=== PATIENT | female | born 1940 | race Caucasian/White ===

== ENCOUNTER 2016-09-24 10:50 | Emergency (ER) | payer OTHER ==
[~2016-09-24] VITALS: Ht 157.5 cm; Wt 140.6 kg
[2016-09-24 10:56] VITALS: BP 156/91
--- NOTE | 2016-09-24 11:16 | NUR ---
Patient to bed 04.
--- NOTE | 2016-09-24 11:20 | NUR ---
Dr. Massey evaluating patient at bedside.
--- NOTE | 2016-09-24 11:22 | NUR ---
PATIENT BIB DAUGHTER ON WHEEL CHAIR WITH C/O BLOOD ON STOOL A MONTH AGO, BLOOD IN URINE TODAY, WEAK, "FEEL LIKE FAINTING", DIZZINESS, SOB, BL LOWER EXTRIMITIES SWELLING, C/O PAIN ON AMBULATION;HX; HTN, OBESE, BLOOD CLOT ON LEG, ARTHRITIS ON ALL JOINTS;RX; DICLOFENAC 1% GEL 100GM, XAREL, ATENOLOL, FUROSEMIDE, FERROUS SULFATE,POTASSIUM CL, ENALAPRIL, TRAMADOL, VIT.D;PT IS WHEELCHAIR BOUND; DENIES N/V/D; SKIN IS PINK/WARM/DRY; AAOX4; LUNGS CLEAR BL; HR EVEN AND REGULAR; PT DENIES ANY FEVER, CP, SOB, OR COUGH AT THIS TIME; PATIENT STATES PAIN OF 0/10 AT THIS TIME;PATIENT POSITIONED FOR COMFORT;
[2016-09-24] MEDS ORDERED: cefTRIAXone 1,000 MG in LIDOCAINE 1% ED 2.1 ML IM ONE (11:30)
--- NOTE | 2016-09-24 12:25 | NUR ---
Patient discharged with v/s stable. Written and verbal after care instructions given and explained.Patient alert, oriented and verbalized understanding of instructions. Wheel Chair Assisted with to car. All questions addressed prior to discharge. ID band removed. Patient advised to follow up with PMD. Rx of KEFLEX given. Patient educated on indication of medication including possible reaction and side effects. Opportunity to ask questions provided and answered.ADVISED PT TO INCEASE FLUID INTAKE AND CLEAN ANAL AREA FROM FRONT TO BACK TO AVOID CONATMINATION OF PRIVATE AREA TO AVOID INFXN/UTI.
[2016-09-24 12:27] VITALS: BP 156/91
== END 2016-09-24 12:25 | disposition home or self-care (01) ==
LOC: MED 10:50
DX: N30.81 Other cystitis with hematuria (principal); I10 Essential (primary) hypertension; E66.01 Morbid (severe) obesity due to excess calories; M19.90 Unspecified osteoarthritis, unspecified site; Z86.718 Personal history of other venous thrombosis and embolism
CPT/HCPCS: 36415; 71010; 80053; 81001; 83880; 84484; 85025; 85610; 85730; 87086; 93005; 96372; 99285; J0696; J2001; Q0092

== ENCOUNTER 2017-09-05 16:51 | Emergency (ER) | payer OTHER ==
[~2017-09-05] VITALS: Ht 160 cm; Wt 140.6 kg
[2017-09-05 17:00] VITALS: BP 178/106
--- NOTE | 2017-09-05 17:00 | NUR ---
PT AMBULATES TO BED 4
--- NOTE | 2017-09-05 17:05 | NUR ---
PT. BIB DAUGHTER BY RECOMMENDATION OF HER THERAPY PLACE DUE TO HER B/P BEING HIGH. PT. STATES " I HAVE BEEN FEELING DIZZY THESE PAST 3 DAYS AND ALSO HAVE HAD SOME VISION CHANGES,I HAVE BEEN A LITTLE MORE SOB WHEN I WALK 15-20 STEPS". PT. AAOX4. PT. DENIES N/V/D. PT. SAYS SHE FEELS WEAK AND DIZZY. DENIES COUGH. DAUGHTER AT BEDSIDE. Jaya NAVARRETE NOTIFIED OF PATIENT STATUS. WILL CONTINUE TO MONITOR.
[2017-09-05] MEDS ORDERED: NITROGLYCERIN 2% 1 GM PKT TP ONE (17:30)
--- NOTE | 2017-09-05 17:46 | NUR ---
LAB AT BEDSIDE.
[2017-09-05 18:11] LABS: BASOPHILS # (AUTO) 0.1 K/uL (0.00-0.22); BASOPHILS % (AUTO) 0.7 % (0.0-2.0); EOSINOPHILS # (AUTO) 0.1 K/uL (0-0.4); EOSINOPHILS % (AUTO) 1.5 % (0.0-4.0); HEMATOCRIT 36.5 % (36-48); HEMOGLOBIN 11.2 g/dL (12.0-16.0); LYMPHOCYTES # (AUTO) 1.9 K/uL (2.5-16.5); MEAN CORPUSCULAR HEMOGLOBIN 23 pg (27-31); MEAN CORPUSCULAR HGB CONC 31 g/dL (33-37); MEAN CORPUSCULAR VOLUME 75.7 fL (80-94); MONOCYTES # (AUTO) 0.7 K/uL (0.8-1.0); MONOCYTES % (AUTO) 7.5 % (1.7-9.3); NEUTROPHILS # (AUTO) 5.9 K/uL (1.8-7.7); NEUTROPHILS % (AUTO) 68.3 % (42.2-75.2); PLATELET COUNT (AUTO) 241 K/uL (140-450); RED BLOOD CELL COUNT(AUTO) 4.81 MIL/uL (4.20-5.40); WHITE BLOOD COUNT (AUTO) 8.7 K/uL (4.8-10.8)
--- NOTE | 2017-09-05 18:15 | NUR ---
PT. AMBULATED TO RESTROOM W/ STEADY GAIT W/ WALKER AND DAUGHTER .
[2017-09-05 18:26] LABS: PROTHROMBIN TIME 11.6 secs (10.8-13.4)
[2017-09-05 18:27] LABS: ANION GAP 15.2 (8-16); CARBON DIOXIDE 26.3 mmol/L (21-32); CHLORIDE 107 mmol/L (98-107); CREATININE 0.8 mg/dL (0.6-1.3); GLUCOSE 91 mg/dL (74-106); POTASSIUM 3.5 mmol/L (3.5-5.1); SODIUM SERUM 145 mmol/L (136-145); UREA NITROGEN, BLOOD 22 mg/dL (7-18)
[2017-09-05 18:28] LABS: APPEARANCE,URINE SL CLOUDY (CLEAR); BILIRUBIN,URINE 1+ (NEGATIVE); BLOOD, URINE 1+ (NEGATIVE); COLOR,URINE YELLOW (YELLOW); LEUKOCYTE ESTERASE ,URINE 2+ (NEGATIVE); NITRITE, URINE POSITIVE (NEGATIVE); UGLUCOSE NEGATIVE (NEGATIVE)
[2017-09-05 18:33] LABS: ALBUMIN 3.2 g/dL (3.4-5.0); ASPARTATE AMINOTRANSFERASE 13 U/L (15-37); TOTAL BILIRUBIN 0.3 mg/dL (0.0-1.0)
--- NOTE | 2017-09-05 18:52 | NUR ---
PT. RESTING IN BED COMFORTABLY, RR EVEN AND UNLABORED, DAUGHTER AT BEDSIDE. BED IN LOWEST POSITION. WILL CONTINUE TO MONITOR.
[2017-09-05 18:59] LABS: RBC,URINE 0-5 (RARE) /HPF (0-5)
[2017-09-05 19:00] LABS: WBC,URINE TOO MANY TO COUNT /HPF (0-5)
--- NOTE | 2017-09-05 19:13 | NUR ---
Pt report given to AUSTIN GOODRICH . Transfer of care at this time.
--- NOTE | 2017-09-05 19:22 | NUR ---
Ultrasound at bedside.
--- NOTE | 2017-09-05 20:00 | NUR ---
Patient discharged with v/s stable. Written and verbal after care instructions given and explained. Patient verbalized understanding. Ambulatory with steady gait. All questions addressed prior to discharge. Advised to follow up with PMD.
[2017-09-05 20:09] VITALS: BP 132/73
== END 2017-09-05 20:00 | disposition home or self-care (01) ==
LOC: MED 16:51
DX: F41.9 Anxiety disorder, unspecified (principal); R06.00 Dyspnea, unspecified; I10 Essential (primary) hypertension; E78.5 Hyperlipidemia, unspecified; M19.90 Unspecified osteoarthritis, unspecified site; R82.79 Other abnormal findings on microbiological examination of urine; Z86.718 Personal history of other venous thrombosis and embolism
CPT/HCPCS: 36415; 71045; 80053; 81001; 83880; 84484; 85025; 85610; 85730; 87086; 87186; 93970; 99285; Q0092

== ENCOUNTER 2017-12-26 10:11 | Emergency (ER) | payer OTHER ==
[~2017-12-26] VITALS: Ht 157.5 cm; Wt 140.6 kg
[2017-12-26 10:20] VITALS: BP 155/84
--- NOTE | 2017-12-26 10:20 | NUR ---
TO BED AMB. WITH WALKER WITH FAMILY
--- NOTE | 2017-12-26 10:26 | NUR ---
76 YO F BIB DAUGHTER FOR C/O RT. UPPER BACK PAIN TORT. BREAST AND NECK X2WKS. PT DENIES ANY TRAUMA OR RECENT INJURY. AAOX4 LS CLEAR THROUGHOUT. ABD SOFT ROUND AND NON TENDER. PT DENIES ANY CP, SOB, FEVER COUGH OR COLD AT THIS TIME. NO OTHER MEDIAL CO AT THIS TIME. PT POSITIONED FOR COMFORT. ER MD MADE AWARE.
[2017-12-26] MEDS ORDERED: KETOROLAC 60 MG/2 ML VIAL IM ONE (10:45)
--- NOTE | 2017-12-26 10:50 | NUR ---
# 14 FR Urinary catheter inserted utilizing sterile technique. Immediate return of 100 ml CLEAR YELLOW urine noted. Urine sample collected and sent to lab. Pt tolerated procedure WELL.
[2017-12-26] MEDS ORDERED: TRAZ-343 PO (10:51)
[2017-12-26] MEDS ORDERED: VAS5 PO (10:51)
[2017-12-26] MEDS ORDERED: FURO-570 PO (10:51)
[2017-12-26] MEDS ORDERED: ATEN25TA7 PO (10:51)
[2017-12-26] MEDS ORDERED: POTA10TE30 PO (10:51)
[2017-12-26] MEDS ORDERED: RIVA20TA PO (10:51)
[2017-12-26] MEDS ORDERED: VITD1000 PO (10:51)
--- NOTE | 2017-12-26 11:00 | NUR ---
DR HALL AT BEDSIDE FOR PT EVALUATION
[2017-12-26 11:41] VITALS: BP 149/80
--- NOTE | 2017-12-26 11:41 | NUR ---
Patient discharged with v/s stable. Written and verbal after care instructions given and explained. Patient alert, oriented and verbalized understanding of instructions. Ambulatory with ADDISTIVE DEVICE. All questions addressed prior to discharge. ID band removed. Patient advised to follow up with PMD. Rx of given. Patient educated on indication of medication including possible reaction and side effects. Opportunity to ask questions provided and answered.
== END 2017-12-26 11:41 | disposition home or self-care (01) ==
LOC: MED 10:11
DX: N12 Tubulo-interstitial nephritis, not specified as acute or chronic (principal); I10 Essential (primary) hypertension; Z79.899 Other long term (current) drug therapy
CPT/HCPCS: 81002; 96372; 99283; C1758; J1885

== ENCOUNTER 2019-01-24 10:29 | Inpatient (IN) | payer OTHER ==
[~2019-01-24] VITALS: Ht 157.5 cm; Wt 129.3 kg
[~2019-01-24 10:29] MED LIST: ATEN25TA7 PO; FURO-570 PO; POTA10TE30 PO; RIVA20TA PO; TRAZ-343 PO; VAS5 PO; VITD1000 PO
[2019-01-24 10:34] VITALS: BP 119/81
[2019-01-24] MEDS ORDERED: IBUP-44 PO (10:43)
[2019-01-24] MEDS ORDERED: HYDR-5122 PO (10:43)
[2019-01-24] MEDS ORDERED: FERR324T11 PO (10:43)
[2019-01-24] MEDS ORDERED: VITD1000 PO (10:43)
[2019-01-24 11:31] LABS: BASOPHILS % (AUTO) 0.3 % (0.0-2.0); EOSINOPHILS % (AUTO) 0.4 % (0.0-4.0); HEMATOCRIT 43.7 % (36-48); HEMOGLOBIN 13.6 g/dL (12.0-16.0); LYMPHOCYTES # (AUTO) 0.8 K/uL (2.5-16.5); LYMPHOCYTES % (AUTO) 10.1 % (20.5-51.1); MEAN CORPUSCULAR HEMOGLOBIN 25 pg (27-31); MEAN CORPUSCULAR HGB CONC 31 g/dL (33-37); MEAN CORPUSCULAR VOLUME 81.4 fL (80-94); MONOCYTES # (AUTO) 0.6 K/uL (0.8-1.0); MONOCYTES % (AUTO) 7.7 % (1.7-9.3); NEUTROPHILS # (AUTO) 6.7 K/uL (1.8-7.7); NEUTROPHILS % (AUTO) 81.5 % (42.2-75.2); PLATELET COUNT (AUTO) 190 K/uL (140-450); RED BLOOD CELL COUNT(AUTO) 5.37 MIL/uL (4.20-5.40); RED CELL DISTRIBUTION WIDTH 16.9 % (11.6-13.7); WHITE BLOOD COUNT (AUTO) 8.2 K/uL (4.8-10.8)
[2019-01-24 11:40] LABS: PROTHROMBIN TIME 11.4 secs (10.8-13.4)
[2019-01-24 11:43] LABS: ANION GAP 14.7 (8-16); CARBON DIOXIDE 24.7 mmol/L (21-32); CHLORIDE 106 mmol/L (98-107); CREATININE 1.1 mg/dL (0.6-1.3); GLUCOSE 114 mg/dL (74-106); POTASSIUM 3.4 mmol/L (3.5-5.1); SODIUM SERUM 142 mmol/L (136-145); UREA NITROGEN, BLOOD 30 mg/dL (7-18)
[2019-01-24 11:56] LABS: ALBUMIN 3.1 g/dL (3.4-5.0); ASPARTATE AMINOTRANSFERASE 33 U/L (15-37); LIPASE 152 U/L (73-393); TOTAL BILIRUBIN 0.8 mg/dL (0.0-1.0)
[2019-01-24] MEDS ORDERED: AZITHROMYCIN 500 MG in DEXTROSE 5% 250 ML IV ONE (12:00)
[2019-01-24 12:03] LABS: APPEARANCE,URINE HAZY (CLEAR); BILIRUBIN,URINE 2+ (NEGATIVE); BLOOD, URINE 3+ (NEGATIVE); COLOR,URINE YELLOW (YELLOW); LEUKOCYTE ESTERASE ,URINE 2+ (NEGATIVE); NITRITE, URINE NEGATIVE (NEGATIVE); UGLUCOSE NEGATIVE (NEGATIVE)
[2019-01-24] MEDS ORDERED: cefTRIAXone 1,000 MG VIAL ONE (12:03)
[2019-01-24] MEDS ORDERED: AZITHROMYCIN 500 MG INJ VIAL IV ONE (12:03)
[2019-01-24 12:10] LABS: WBC,URINE 16-25 (MOD) /HPF (0-5)
[2019-01-24] MEDS ORDERED: NACL 0.9% IV ONE (12:15)
[2019-01-24] MEDS ORDERED: NACL 0.9% 1,000 ML IV SCH (15:22)
[2019-01-24] MEDS ORDERED: ONDANSETRON 4 MG/2 ML VIAL IVP PRN (15:25)
[2019-01-24] MEDS ORDERED: ACETAMINOPHEN 325 MG TAB PO PRN (15:25)
[2019-01-24] MEDS ORDERED: HYDROcodone/APAP 5/325 MG 1 TAB TAB PO PRN (15:25)
[2019-01-24] MEDS ORDERED: MORPHINE SULFATE 4 MG/ML SYR IVP PRN (15:25)
[2019-01-24] MEDS ORDERED: POTASSIUM CHLORIDE 10 MEQ TABER PO SCH (15:46)
[2019-01-24 16:00] VITALS: BP 152/88
[2019-01-24] MEDS: FERROUS GLUCONATE 324 MG TAB PO SCH (18:47)
[2019-01-24 20:00] VITALS: BP 150/96
[2019-01-24] MEDS: traZODone 50 MG TAB PO SCH (20:24)
[2019-01-25] VITALS: BP 131/81
[2019-01-25 04:00] VITALS: BP 119/98
[2019-01-25 06:51] LABS: MAGNESIUM 1.7 mg/dL (1.8-2.4); PHOSPHORUS 3.9 mg/dL (2.5-4.9)
[2019-01-25 07:09] LABS: BASOPHILS % (AUTO) 0.4 % (0.0-2.0); EOSINOPHILS # (AUTO) 0.2 K/uL (0-0.4); EOSINOPHILS % (AUTO) 1.5 % (0.0-4.0); HEMATOCRIT 40.7 % (36-48); HEMOGLOBIN 12.6 g/dL (12.0-16.0); LYMPHOCYTES # (AUTO) 1.3 K/uL (2.5-16.5); LYMPHOCYTES % (AUTO) 12.9 % (20.5-51.1); MEAN CORPUSCULAR HEMOGLOBIN 26 pg (27-31); MEAN CORPUSCULAR HGB CONC 31 g/dL (33-37); MEAN CORPUSCULAR VOLUME 82.8 fL (80-94); MONOCYTES # (AUTO) 0.9 K/uL (0.8-1.0); MONOCYTES % (AUTO) 9.2 % (1.7-9.3); NEUTROPHILS # (AUTO) 7.7 K/uL (1.8-7.7); PLATELET COUNT (AUTO) 189 K/uL (140-450); RED BLOOD CELL COUNT(AUTO) 4.91 MIL/uL (4.20-5.40); RED CELL DISTRIBUTION WIDTH 17.6 % (11.6-13.7); WHITE BLOOD COUNT (AUTO) 10.1 K/uL (4.8-10.8)
[2019-01-25 07:27] LABS: ANION GAP 13.4 (8-16); CARBON DIOXIDE 26.3 mmol/L (21-32); CHLORIDE 105 mmol/L (98-107); CREATININE 0.9 mg/dL (0.6-1.3); GLUCOSE 111 mg/dL (74-106); POTASSIUM 3.7 mmol/L (3.5-5.1); SODIUM SERUM 141 mmol/L (136-145); UREA NITROGEN, BLOOD 29 mg/dL (7-18)
[2019-01-25 08:00] VITALS: BP 134/98
[2019-01-25] MEDS: ATENOLOL 25 MG TAB PO SCH (09:03)
[2019-01-25] MEDS: RIVAROXABAN 10 MG TAB PO SCH (09:03)
[2019-01-25] MEDS: ENALAPRIL 5 MG TAB PO SCH (09:04)
[2019-01-25] MEDS: FERROUS GLUCONATE 324 MG TAB PO SCH ×3 (09:04→17:26)
[2019-01-25] MEDS: traZODone 50 MG TAB PO SCH ×2 (09:05→20:37)
[2019-01-25] MEDS: CHOLECALCIFEROL 1,000 IU TAB PO SCH (09:05)
[2019-01-25] MEDS ORDERED: POTASSIUM CHLORIDE 10 MEQ TABER PO SCH (10:30)
[2019-01-25] MEDS ORDERED: MAG SULF 2000 MG/WATER PREMIX 50 ML IV SCH (10:30)
[2019-01-25 12:00] VITALS: BP 117/85
[2019-01-25 16:00] VITALS: BP 114/83
[2019-01-25] MEDS: AZITHROMYCIN 500 MG in DEXTROSE 5% 250 ML IV SCH (16:09)
[2019-01-25 19:55] VITALS: BP 122/83
[2019-01-26] VITALS: BP 134/85
[2019-01-26 04:30] VITALS: BP 142/87
[2019-01-26 07:01] LABS: ANION GAP 12.9 (8-16); CARBON DIOXIDE 26.1 mmol/L (21-32); CHLORIDE 104 mmol/L (98-107); CREATININE 0.7 mg/dL (0.6-1.3); GLUCOSE 96 mg/dL (74-106); SODIUM SERUM 139 mmol/L (136-145); UREA NITROGEN, BLOOD 22 mg/dL (7-18)
[2019-01-26 07:21] LABS: BASOPHILS % (AUTO) 0.4 % (0.0-2.0); EOSINOPHILS # (AUTO) 0.1 K/uL (0-0.4); EOSINOPHILS % (AUTO) 1.1 % (0.0-4.0); HEMATOCRIT 39.2 % (36-48); HEMOGLOBIN 12.2 g/dL (12.0-16.0); LYMPHOCYTES # (AUTO) 1.2 K/uL (2.5-16.5); LYMPHOCYTES % (AUTO) 12.5 % (20.5-51.1); MEAN CORPUSCULAR HEMOGLOBIN 26 pg (27-31); MEAN CORPUSCULAR HGB CONC 31 g/dL (33-37); MEAN CORPUSCULAR VOLUME 82.9 fL (80-94); MONOCYTES # (AUTO) 0.9 K/uL (0.8-1.0); MONOCYTES % (AUTO) 9.7 % (1.7-9.3); NEUTROPHILS # (AUTO) 7.4 K/uL (1.8-7.7); NEUTROPHILS % (AUTO) 76.3 % (42.2-75.2); PHOSPHORUS 3.5 mg/dL (2.5-4.9); PLATELET COUNT (AUTO) 170 K/uL (140-450); RED BLOOD CELL COUNT(AUTO) 4.73 MIL/uL (4.20-5.40); RED CELL DISTRIBUTION WIDTH 17.2 % (11.6-13.7); WHITE BLOOD COUNT (AUTO) 9.7 K/uL (4.8-10.8)
[2019-01-26 08:00] VITALS: BP 149/93
[2019-01-26] MEDS: FERROUS GLUCONATE 324 MG TAB PO SCH ×3 (09:37→17:19)
[2019-01-26] MEDS: ENALAPRIL 5 MG TAB PO SCH (09:37)
[2019-01-26] MEDS: RIVAROXABAN 10 MG TAB PO SCH (09:38)
[2019-01-26] MEDS: traZODone 50 MG TAB PO SCH ×2 (09:38→20:51)
[2019-01-26] MEDS: CHOLECALCIFEROL 1,000 IU TAB PO SCH (09:39)
[2019-01-26] MEDS: ATENOLOL 25 MG TAB PO SCH (09:40)
[2019-01-26] MEDS: ALBUTEROL 0.083% 2.5 MG/3 ML NEBU IH PRN ×2 (11:55→21:29)
[2019-01-26 12:00] VITALS: BP 110/72
[2019-01-26] MEDS: AZITHROMYCIN 500 MG in DEXTROSE 5% 250 ML IV SCH (12:17)
[2019-01-26] MEDS: HYDROcodone/APAP 5/325 MG 1 TAB TAB PO PRN (14:29)
[2019-01-26 16:00] VITALS: BP 97/70
[2019-01-26 20:00] VITALS: BP 130/87
[2019-01-27] VITALS: BP 131/91
[2019-01-27 04:00] VITALS: BP 137/87
[2019-01-27 07:10] LABS: BASOPHILS % (AUTO) 0.3 % (0.0-2.0); EOSINOPHILS # (AUTO) 0.1 K/uL (0-0.4); HEMATOCRIT 41.4 % (36-48); HEMOGLOBIN 12.8 g/dL (12.0-16.0); LYMPHOCYTES # (AUTO) 1.1 K/uL (2.5-16.5); MEAN CORPUSCULAR HEMOGLOBIN 26 pg (27-31); MEAN CORPUSCULAR HGB CONC 31 g/dL (33-37); MEAN CORPUSCULAR VOLUME 82.8 fL (80-94); MONOCYTES # (AUTO) 0.9 K/uL (0.8-1.0); MONOCYTES % (AUTO) 9.6 % (1.7-9.3); NEUTROPHILS # (AUTO) 7.2 K/uL (1.8-7.7); NEUTROPHILS % (AUTO) 77.1 % (42.2-75.2); PLATELET COUNT (AUTO) 209 K/uL (140-450); RED CELL DISTRIBUTION WIDTH 17.3 % (11.6-13.7); WHITE BLOOD COUNT (AUTO) 9.3 K/uL (4.8-10.8)
[2019-01-27 07:13] LABS: PHOSPHORUS 3.5 mg/dL (2.5-4.9)
[2019-01-27 07:30] LABS: ANION GAP 12.7 (8-16); CARBON DIOXIDE 27.4 mmol/L (21-32); CHLORIDE 102 mmol/L (98-107); CREATININE 0.7 mg/dL (0.6-1.3); GLUCOSE 92 mg/dL (74-106); POTASSIUM 4.1 mmol/L (3.5-5.1); SODIUM SERUM 138 mmol/L (136-145); UREA NITROGEN, BLOOD 19 mg/dL (7-18)
[2019-01-27 08:00] VITALS: BP 152/90
[2019-01-27] MEDS: ENALAPRIL 5 MG TAB PO SCH (09:20)
[2019-01-27] MEDS: CHOLECALCIFEROL 1,000 IU TAB PO SCH (09:20)
[2019-01-27] MEDS: traZODone 50 MG TAB PO SCH ×2 (09:20→20:51)
[2019-01-27] MEDS: FERROUS GLUCONATE 324 MG TAB PO SCH ×3 (09:21→17:11)
[2019-01-27] MEDS: ATENOLOL 25 MG TAB PO SCH (09:21)
[2019-01-27] MEDS: APIXABAN 2.5 MG TAB PO SCH ×2 (09:28→20:54)
[2019-01-27 12:00] VITALS: BP 153/77
[2019-01-27] MEDS: HYDROcodone/APAP 5/325 MG 1 TAB TAB PO PRN (12:05)
[2019-01-27] MEDS: AZITHROMYCIN 500 MG in DEXTROSE 5% 250 ML IV SCH (12:56)
[2019-01-27 16:00] VITALS: BP 151/86
[2019-01-27 20:00] VITALS: BP 133/88
[2019-01-28] VITALS: BP 117/83
[2019-01-28 04:00] VITALS: BP 129/94
[2019-01-28 07:31] LABS: BASOPHILS # (AUTO) 0.1 K/uL (0.00-0.22); BASOPHILS % (AUTO) 0.7 % (0.0-2.0); EOSINOPHILS # (AUTO) 0.2 K/uL (0-0.4); EOSINOPHILS % (AUTO) 1.7 % (0.0-4.0); HEMATOCRIT 39.3 % (36-48); HEMOGLOBIN 12.5 g/dL (12.0-16.0); LYMPHOCYTES % (AUTO) 11.1 % (20.5-51.1); MEAN CORPUSCULAR HEMOGLOBIN 26 pg (27-31); MEAN CORPUSCULAR HGB CONC 32 g/dL (33-37); MEAN CORPUSCULAR VOLUME 82.5 fL (80-94); MONOCYTES % (AUTO) 10.6 % (1.7-9.3); NEUTROPHILS % (AUTO) 75.9 % (42.2-75.2); PLATELET COUNT (AUTO) 262 K/uL (140-450); RED BLOOD CELL COUNT(AUTO) 4.76 MIL/uL (4.20-5.40); RED CELL DISTRIBUTION WIDTH 17.4 % (11.6-13.7); WHITE BLOOD COUNT (AUTO) 9.3 K/uL (4.8-10.8)
[2019-01-28 07:57] LABS: CARBON DIOXIDE 27.3 mmol/L (21-32); CHLORIDE 102 mmol/L (98-107); CREATININE 0.7 mg/dL (0.6-1.3); GLUCOSE 88 mg/dL (74-106); POTASSIUM 4.3 mmol/L (3.5-5.1); SODIUM SERUM 138 mmol/L (136-145); UREA NITROGEN, BLOOD 18 mg/dL (7-18)
[2019-01-28 08:00] VITALS: BP 132/92
[2019-01-28 08:02] LABS: MAGNESIUM 1.9 mg/dL (1.8-2.4); PHOSPHORUS 3.8 mg/dL (2.5-4.9)
[2019-01-28] MEDS: ATENOLOL 25 MG TAB PO SCH (08:51)
[2019-01-28] MEDS: CHOLECALCIFEROL 1,000 IU TAB PO SCH (08:52)
[2019-01-28] MEDS: ENALAPRIL 5 MG TAB PO SCH (08:52)
[2019-01-28] MEDS: traZODone 50 MG TAB PO SCH (08:52)
[2019-01-28] MEDS: APIXABAN 2.5 MG TAB PO SCH (08:52)
[2019-01-28] MEDS: FERROUS GLUCONATE 324 MG TAB PO SCH ×2 (08:53→13:11)
[2019-01-28] MEDS: AZITHROMYCIN 500 MG in DEXTROSE 5% 250 ML IV SCH (11:43)
[2019-01-28 12:00] VITALS: BP 135/80
[2019-01-28] MEDS: HYDROcodone/APAP 5/325 MG 1 TAB TAB PO PRN (13:09)
[2019-01-28] MEDS ORDERED: LEVO750T2 PO (13:52)
[2019-01-28] MEDS ORDERED: APIX2.5 PO (13:52)
[2019-01-28 15:39] VITALS: BP 135/80
[2019-01-28] MEDS: ALBUTEROL 0.083% 2.5 MG/3 ML NEBU IH PRN (16:03)
[2019-02-02] MEDS ORDERED: APIXABAN 2.5 MG TAB PO SCH (21:00)
== END 2019-01-28 17:00 | disposition home health service (06) | DRG 871 ==
LOC: MED 10:29 → MTU 15:25
PROVIDERS: ADMIT Internal Medicine Pulmonary Disease; ATTEND Internal Medicine Pulmonary Disease
DX: A41.9 Sepsis, unspecified organism (principal); J18.9 Pneumonia, unspecified organism; J96.01 Acute respiratory failure with hypoxia; I26.99 Other pulmonary embolism without acute cor pulmonale; N39.0 Urinary tract infection, site not specified; I82.402 Acute embolism and thrombosis of unspecified deep veins of left lower extremity; I11.0 Hypertensive heart disease with heart failure; I50.9 Heart failure, unspecified; E86.0 Dehydration; I48.91 Unspecified atrial fibrillation; Z79.899 Other long term (current) drug therapy; Z90.49 Acquired absence of other specified parts of digestive tract
CPT/HCPCS: 36415; 71045; 73030; 73562; 78582; 80048; 80053; 81001; 82948; 83605; 83690; 83735; 83880; 84100; 84484; 85025; 85610; 87040; 87081; 87086; 87186; 93970; 94640; 96365; 96367; 97110; 97112; 97116; 97161-GP; 97530; 99285; J0456; J0696; J2270; J3475; J7060; J7613; Q0092

== ENCOUNTER 2019-10-01 18:36 | Emergency (ER) | payer OTHER ==
[~2019-10-01] VITALS: Ht 157.5 cm; Wt 140.6 kg
[~2019-10-01 18:36] MED LIST changes: +APIX2.5 PO; +ENAL5TAB48 PO; +FERR324T11 PO; +HYDR-5122 PO; +IBUP-44 PO; +LEVO750T2 PO; -RIVA20TA PO; -VAS5 PO
[2019-10-01 18:42] VITALS: BP 144/116
--- NOTE | 2019-10-01 19:05 | NUR ---
PT C/O LEFT FOOT SWELLING. PT STATES THE SWELLING OCCURED THIS WEEK. NO INJURY PRIOR TO SWELLING. PT DENIES FALL. PT HAS BILATERAL NONPITTING EDEMA +2. PT IS ABLE TO MOVE TOES. PT STATES SHE HAD CHEST PAIN 3 DAYS AGO. SHE TOOK PAIN MEDS FOR CHEST PAIN. PT HAS A HISTORY OF DVT IN THE LEFT LEG. SHE HAS BEEN GETTING STEROID SHOTS IN THE LEFT KNEE. PT STOPPED TAKING HER BLOOD THINNER MEDICATION PRIOR TO THE STEROID INJECTIONS. PMHX: ARTHRITIS, DVT, HTN NKA/NKDA
--- NOTE | 2019-10-01 19:10 | NUR ---
Pt report given to AUSTIN WEBB. Transfer of care at this time.
--- NOTE | 2019-10-01 19:20 | NUR ---
REPORT RECIEVED BY AUSTIN SCHWARZCRM FUNCTIONAL ANALYST OF CARE AT THIS TIME.
--- NOTE | 2019-10-01 19:20 | NUR ---
DR. KNUTSON AT BEDSIDE EVALUATING PT.
--- NOTE | 2019-10-01 20:00 | NUR ---
PT RESTIGN COMFORTABLY IN BED. DAUGHTER (PRIMARY CAREGIVER) AT BEDSIDE. BED LOCKED AND IN LOWEST POSITION. SIDE RAILS X2.
--- NOTE | 2019-10-01 20:35 | NUR ---
US AT BEDSIDE
[2019-10-01] MEDS ORDERED: NACL 0.9% 1,000 ML IV ONE (21:15)
[2019-10-01 22:02] LABS: BASOPHILS # (AUTO) 0.1 K/uL (0.00-0.22); BASOPHILS % (AUTO) 0.6 % (0.0-2.0); EOSINOPHILS # (AUTO) 0.1 K/uL (0-0.4); EOSINOPHILS % (AUTO) 1.6 % (0.0-4.0); HEMATOCRIT 44.6 % (36-48); HEMOGLOBIN 14.2 g/dL (12.0-16.0); LYMPHOCYTES # (AUTO) 1.8 K/uL (2.5-16.5); LYMPHOCYTES % (AUTO) 20.4 % (20.5-51.1); MEAN CORPUSCULAR HEMOGLOBIN 28 pg (27-31); MEAN CORPUSCULAR HGB CONC 32 g/dL (33-37); MEAN CORPUSCULAR VOLUME 87.9 fL (80-94); MONOCYTES # (AUTO) 0.7 K/uL (0.8-1.0); MONOCYTES % (AUTO) 7.7 % (1.7-9.3); NEUTROPHILS # (AUTO) 6.1 K/uL (1.8-7.7); NEUTROPHILS % (AUTO) 69.7 % (42.2-75.2); PLATELET COUNT (AUTO) 238 K/uL (140-450); RED BLOOD CELL COUNT(AUTO) 5.07 MIL/uL (4.20-5.40); RED CELL DISTRIBUTION WIDTH 16.6 % (11.6-13.7); WHITE BLOOD COUNT (AUTO) 8.7 K/uL (4.8-10.8)
[2019-10-01 22:20] LABS: ALBUMIN 3.3 g/dL (3.4-5.0); ANION GAP 9.9 (8-16); ASPARTATE AMINOTRANSFERASE 12 U/L (15-37); CARBON DIOXIDE 32.1 mmol/L (21-32); CHLORIDE 108 mmol/L (98-107); CREATININE 0.9 mg/dL (0.6-1.3); GLUCOSE 97 mg/dL (74-106); SODIUM SERUM 146 mmol/L (136-145); TOTAL BILIRUBIN 0.5 mg/dL (0.0-1.0); UREA NITROGEN, BLOOD 18 mg/dL (7-18)
[2019-10-01 22:21] LABS: PROTHROMBIN TIME 10.7 secs (10.8-13.4)
[2019-10-01] MEDS ORDERED: ENOXAPARIN 120 MG/0.8 ML SYR SUBQ ONE (22:30)
--- NOTE | 2019-10-01 22:35 | NUR ---
PT CALM AND RESTING IN BED. EQUAL CHEST RISE AND FALL. SAFETY MEASURES IN PLACE.
[2019-10-01 23:15] VITALS: BP 144/116
--- NOTE | 2019-10-01 23:15 | NUR ---
Patient discharged with v/s stable. Written and verbal after care instructions given and explained. Patient alert, oriented and verbalized understanding of instructions. Wheel Chair Assisted with by caregiver. All questions addressed prior to discharge. ID band removed. Patient advised to follow up with PMD. Rx of LOVENOX given. Patient educated on indication of medication including possible reaction and side effects. Opportunity to ask questions provided and answered.
== END 2019-10-01 23:15 | disposition home or self-care (01) ==
LOC: MED 18:36
DX: I82.462 Acute embolism and thrombosis of left calf muscular vein (principal); I10 Essential (primary) hypertension; Z79.899 Other long term (current) drug therapy
CPT/HCPCS: 36415; 80053; 85025; 85610; 85730; 93971; 96372; 99284; J1650; Q0092